=== PATIENT | female | born 1970 | race Caucasian/White ===

== ENCOUNTER → 2024-01-14 | Outpatient (REF) | LOC: M PLAIMG 11:49 | PROVIDERS: ATTEND Internal Medicine | DX: R52 Pain, unspecified (principal) ==

== ENCOUNTER → 2024-06-01 | Outpatient (CLI) | payer MEDICARE ==
[~2024-06-01] VITALS: Ht 165.1 cm; Wt 61.0 kg
[~2024-06-01] MED LIST: ACETAMINOPHEN 325 MG TAB As Ordered ONE; ISOVUE-300 61% 100ML VIAL As Ordered ONE; LIDOCAINE 1% MDV 20ML VIAL As Ordered ONE; MIDAZOLAM INJ 2MG/2ML VIAL As Ordered ONE; NS (Normal Saline) 0.9% 1,000 ML IV SCH; fentaNYL 100 MCG/2 ML INJECTION As Ordered ONE
[2024-06-01 09:30] VITALS: TEMP 97.2
[2024-06-01 11:27] LABS: HEMOGLOBIN 11.4 g/dl (12.0-15.5); MEAN CORPUSCULAR HEMOGLOBIN 30.6 pg (27.0-33.0); MEAN CORPUSCULAR HGB CONC 31.7 g/dl (32.0-36.5); MEAN CORPUSCULAR VOLUME 96.8 fl (80.0-96.0); PLATELET COUNT, AUTOMATED 217 10^3/uL (150-450); RED BLOOD COUNT 3.72 10^6/uL (4.00-5.40); WHITE BLOOD COUNT 3.9 10^3/uL (4.0-10.0)
[2024-06-01 11:40] LABS: BLOOD UREA NITROGEN 13 MG/DL (9-23); CALCIUM LEVEL 9.4 MG/DL (8.5-10.1); CARBON DIOXIDE LEVEL 29 MMOL/L (20-31); CHLORIDE LEVEL 105 MMOL/L (98-107); CREATININE FOR GFR 0.64 MG/DL (0.55-1.30); GLOMERULAR FILTRATION RATE > 60.0 (>51); GLUCOSE, FASTING 117 MG/DL (60-100); POTASSIUM SERUM 3.9 MMOL/L (3.5-5.1); SODIUM LEVEL 141 MMOL/L (136-145)
[2024-06-01] MEDS: ACETAMINOPHEN 325 MG TAB PO ONE (14:52)
[2024-06-01 16:00] VITALS: BP 159/86; O2SAT 95
== END ==
LOC: M IRPRO 08:56
PROVIDERS: ATTEND Internal Medicine Hematology
DX: I82.412 Acute embolism and thrombosis of left femoral vein (principal)
CPT/HCPCS: 36415; 37221; 37224; 80048; 85027; 85610; 99152; 99153; C1769; C1887; C1894; J2250; J3010; Q9967

== ENCOUNTER → 2024-06-11 | Outpatient (CLI) | payer MEDICARE ==
[~2024-06-11] MED LIST changes: -ACETAMINOPHEN 325 MG TAB As Ordered ONE; -ISOVUE-300 61% 100ML VIAL As Ordered ONE; +ISOVUE-370 76% 100ML VIAL As Ordered ONE; -LIDOCAINE 1% MDV 20ML VIAL As Ordered ONE; -MIDAZOLAM INJ 2MG/2ML VIAL As Ordered ONE; -NS (Normal Saline) 0.9% 1,000 ML IV SCH; -fentaNYL 100 MCG/2 ML INJECTION As Ordered ONE
== END ==
LOC: M RAD 09:37
PROVIDERS: ATTEND Internal Medicine Hematology
DX: I82.90 Acute embolism and thrombosis of unspecified vein (principal)
CPT/HCPCS: 74177; Q9967

== ENCOUNTER → 2024-07-13 | Outpatient (CLI) | payer MEDICARE, OTHER ==
[2024-07-13 09:58] LABS: INR 2.6; PROTHROMBIN TIME 27.8 SECONDS (12.5-14.5)
== END ==
LOC: M WUC 08:50
PROVIDERS: ATTEND Internal Medicine Hematology
DX: I82.90 Acute embolism and thrombosis of unspecified vein (principal)

== ENCOUNTER 2024-07-29 14:30 | Emergency (ER) | payer MEDICARE, OTHER ==
[~2024-07-29] VITALS: Ht 165.1 cm; Wt 59.9 kg
[2024-07-29 19:42] LABS: BASO # 0.1 10^3/uL (0.0-0.2); EOS # 0.1 10^3/uL (0.0-0.5); EOS % 1.8 % (0.0-3.0); HEMATOCRIT 38.7 % (36.0-47.0); HEMOGLOBIN 12.3 g/dl (12.0-15.5); LYMPH # 1.9 10^3/uL (1.5-5.0); LYMPH % 36.2 % (24.0-44.0); MEAN CORPUSCULAR HEMOGLOBIN 30.1 pg (27.0-33.0); MEAN CORPUSCULAR HGB CONC 31.8 g/dl (32.0-36.5); MEAN CORPUSCULAR VOLUME 94.6 fl (80.0-96.0); MONO # 0.6 10^3/uL (0.0-0.8); MONO % 10.9 % (2.0-8.0); NEUTROPHILS # 2.6 10^3/uL (1.5-8.5); NEUTROPHILS % 50.1 % (36.0-66.0); PLATELET COUNT, AUTOMATED 287 10^3/uL (150-450); RED BLOOD COUNT 4.09 10^6/uL (4.00-5.40); WHITE BLOOD COUNT 5.1 10^3/uL (4.0-10.0)
[2024-07-29 19:58] LABS: INR 1.71; PARTIAL THROMBOPLASTIN TIME 31.9 SECONDS (24.8-34.2); PROTHROMBIN TIME 20.2 SECONDS (12.5-14.5)
[2024-07-29 20:07] LABS: BLOOD UREA NITROGEN 15 MG/DL (9-23); CALCIUM LEVEL 9.5 MG/DL (8.5-10.1); CARBON DIOXIDE LEVEL 27 MMOL/L (20-31); CHLORIDE LEVEL 107 MMOL/L (98-107); CREATININE FOR GFR 0.53 MG/DL (0.55-1.30); GLOMERULAR FILTRATION RATE > 60.0 (>51); GLUCOSE, FASTING 103 MG/DL (60-100); POTASSIUM SERUM 4.2 MMOL/L (3.5-5.1); SODIUM LEVEL 143 MMOL/L (136-145)
[2024-07-29 23:19] VITALS: BP 132/75; TEMP 98; O2SAT 99
== END 2024-07-29 23:20 | disposition home or self-care (01) ==
LOC: M ED 14:30
DX: I82.512 Chronic embolism and thrombosis of left femoral vein (principal); S43.101A Unspecified dislocation of right acromioclavicular joint, initial encounter; R79.1 Abnormal coagulation profile; W19.XXXA Unspecified fall, initial encounter; Y92.9 Unspecified place or not applicable; Y93.9 Activity, unspecified; Y99.9 Unspecified external cause status; E11.9 Type 2 diabetes mellitus without complications; I10 Essential (primary) hypertension; F41.9 Anxiety disorder, unspecified; F32.A Depression, unspecified; Z88.8 Allergy status to other drugs, medicaments and biological substances; Z91.89 Other specified personal risk factors, not elsewhere classified

== ENCOUNTER → 2024-09-22 | Outpatient (CLI) | payer OTHER ==
[~2024-09-22] MED LIST changes: +CARV3.12 PO; +CETI10CH PO; +COLA100C5 PO; +CYAN500T14 PO; +DULO30CA9 PO; +FENO160T10 PO; +FLUO-96 PO; +FOLI800C PO; +HYDR-3719 PO; -ISOVUE-370 76% 100ML VIAL As Ordered ONE; +JARD1TAB PO; +LOVE1INJ SC; +LYRI75CA PO; +METH-1164 PO; +MIRA3350 PO; +MONT10TA97 PO; +OMEP10CASR PO; +PERF3DRO OP; +ROSU10TA61 PO; +SIME125C4 PO; +TIRZ7.5P SQ; +TRAZ1TAB14 PO; +VITA50TA43 PO; +WARF-21 PO; +WARF-23 PO
== END ==
LOC: M RAD 08:45
PROVIDERS: ATTEND Radiology Diagnostic Radiology
DX: R09.89 Other specified symptoms and signs involving the circulatory and respiratory systems (principal)

== ENCOUNTER → 2024-09-23 | Outpatient (POV) | payer OTHER ==
[~2024-09-23] VITALS: Ht 165.1 cm; Wt 58.6 kg
[2024-09-23 11:30] VITALS: BP 126/62; O2SAT 96
== END ==
LOC: M IRPOV 11:10
PROVIDERS: ATTEND Radiology Diagnostic Radiology
DX: I87.022 Postthrombotic syndrome with inflammation of left lower extremity (principal); I87.092 Postthrombotic syndrome with other complications of left lower extremity; Z88.8 Allergy status to other drugs, medicaments and biological substances; Z91.048 Other nonmedicinal substance allergy status; Z95.828 Presence of other vascular implants and grafts

== ENCOUNTER → 2024-10-23 | Outpatient (CLI) | payer OTHER ==
[2024-10-23 17:50] LABS: BLOOD UREA NITROGEN 14 MG/DL (9-23); CREATININE FOR GFR 0.53 MG/DL (0.55-1.30); GLOMERULAR FILTRATION RATE > 90.0 (>51)
== END ==
LOC: M WUC 14:42
PROVIDERS: ATTEND Psychiatry & Neurology Neurology
DX: I10 Essential (primary) hypertension (principal)

== ENCOUNTER → 2025-04-22 | Outpatient (CLI) | payer OTHER ==
[~2025-04-22] MED LIST changes: -ROSU10TA61 PO; +ROSU10TA90 PO
[2025-04-22 17:33] LABS: INR 2.25
[2025-04-22 17:44] LABS: BASO # 0.1 10^3/uL (0.0-0.2); BASO % 1.0 % (0.0-1.0); EOS # 0.1 10^3/uL (0.0-0.5); EOS % 1.9 % (0.0-3.0); LYMPH # 1.2 10^3/uL (1.5-5.0); LYMPH % 22.9 % (24.0-44.0); MONO # 0.3 10^3/uL (0.0-0.8); MONO % 6.5 % (2.0-8.0); NEUTROPHILS # 3.5 10^3/uL (1.5-8.5); NEUTROPHILS % 67.5 % (36.0-66.0); PLATELET COUNT, AUTOMATED 311 10^3/uL (150-450)
[2025-04-22 18:15] LABS: LDH LACTATE DEHYDROGENASE 167 U/L (120-246)
[2025-04-22 18:16] LABS: C REACTIVE PROTEIN QUANTITATIV < 0.50 MG/DL (<1.0); IRON (FE) 64 UG/DL (50-170); PERCENT SATURATION 12.3 % (13.2-45.0)
[2025-04-22 18:19] LABS: VITAMIN B12 LEVEL 1349 PG/ML (211-911)
[2025-04-24 08:57] LABS: T P ELECTROPHORESIS SO 7.9 g/dL (6.1-8.1)
[2025-04-27 11:08] LABS: ALBUMIN SPEP 4.9 g/dL (3.8-4.8); ALPHA-1-GLOBULINS SO 0.2 g/dL (0.2-0.3); ALPHA-2-GLOBULINS SO 0.7 g/dL (0.5-0.9); BETA 2 GLOBULIN 0.4 g/dL (0.2-0.5); BETA-GLOBULIN SO 0.6 g/dL (0.4-0.6); GAMMA GLOBULINS SO 1.1 g/dL (0.8-1.7)
== END ==
LOC: M WUC 13:15
PROVIDERS: ATTEND Internal Medicine Hematology & Oncology
DX: Z86.711 Personal history of pulmonary embolism (principal); I82.402 Acute embolism and thrombosis of unspecified deep veins of left lower extremity